=== PATIENT | female | born 1970 | race Caucasian/White ===

== ENCOUNTER 2020-04-21 10:59 | Emergency (ER) | payer OTHER ==
[~2020-04-21] VITALS: Ht 152.4 cm; Wt 93.0 kg
== END 2020-04-21 12:07 | disposition home or self-care (01) ==
LOC: ED 10:59
DX: S61.432A Puncture wound without foreign body of left hand, initial encounter (principal); W46.0XXA Contact with hypodermic needle, initial encounter; Z88.8 Allergy status to other drugs, medicaments and biological substances; Z88.5 Allergy status to narcotic agent
CPT/HCPCS: 84460; 86703; 86707; 86803; 87350; 99283